=== PATIENT | female | born 1980 | race Caucasian/White ===

== ENCOUNTER 2018-01-31 16:24 | Emergency (ER) | payer OTHER ==
[~2018-01-31] VITALS: Ht 160 cm; Wt 79.4 kg
[~2018-01-31 16:24] MED LIST: AMOXICILLIN 50500 MG PO; CARISOPRODOL 3350 MG PO; CIPRO500 M1 PO; CLEOCIN HCL150 MG PO; FLEXERIL PO; HYDROCODONE-AP1 EAC6 PO; IBUPROFEN 800800 M1 PO; LEVOTHYROXINE; NEURONTIN; NORCO 5-325 TA1 EAC1 PO; PYRIDIUM200 MG PO; SEROQUEL; TRAZODONE HCL50 MG PO; VISTARIL 25 MG25 M1 PO
[2018-01-31] MEDS ORDERED: ZPAK PO (17:05)
[2018-01-31] MEDS ORDERED: MEDROLDOSEPACK PO (17:05)
[2018-01-31 17:23] VITALS: BP 96/52
== END 2018-01-31 17:25 | disposition home or self-care (01) ==
LOC: M.ERS 16:24
DX: J02.0 Streptococcal pharyngitis (principal); E03.9 Hypothyroidism, unspecified; F41.9 Anxiety disorder, unspecified; F17.210 Nicotine dependence, cigarettes, uncomplicated; Z88.1 Allergy status to other antibiotic agents